=== PATIENT | female | born 1970 | race Caucasian/White ===

== ENCOUNTER → 2016-09-15 | Outpatient (CLI) | payer BC ==
[~2016-09-15] MED LIST: OXYC1TAB7 PO
[2016-09-15 15:13] LABS: BASO % 1 % (0-3); EOS % 2 % (0-3); HEMATOCRIT 35.2 % (36.0-47.0); HEMOGLOBIN 11.8 g/dL (12.0-15.5); LYMPH # 2.5 x10^3/uL (1.0-4.8); LYMPH % 43 % (24-48); MEAN CORPUSCULAR HEMOGLOBIN 27 pg (25-35); MEAN CORPUSCULAR HGB CONC 34 g/dL (31-37); MEAN CORPUSCULAR VOLUME 81 fL (79-100); MONO % 6 % (0-9); NEUT % 48 % (31-73); PLATELET COUNT 288 x10^3/uL (140-400); RED BLOOD COUNT 4.35 x10^6/uL (3.50-5.40); RED CELL DISTRIBUTION WIDTH 14.7 % (11.5-14.5); WHITE BLOOD COUNT 5.7 x10^3/uL (4.0-11.0)
[2016-09-15 15:24] LABS: CALCIUM 8.8 mg/dL (8.5-10.1); CREATININE 0.8 mg/dL (0.6-1.0); GFR 77.9
== END ==
LOC: SURGPAT 13:43
PROVIDERS: ATTEND Obstetrics & Gynecology
DX: Z01.812 Encounter for preprocedural laboratory examination (principal)
CPT/HCPCS: 36415; 80048; 85027

== ENCOUNTER 2016-09-23 06:54 | Observation (INO) | payer BC ==
[~2016-09-23] VITALS: Ht 157.5 cm; Wt 86.2 kg
[2016-09-23] VITALS (7 sets, daily range): BP systolic 95–111; BP diastolic 45–65
[~2016-09-23 06:54] MED LIST changes: +DEXAMETHASONE SOD PHOS 20 MG/5 ML VIAL. ONE; +LIDOCAINE 2% 100 MG/5 ML SYRINGE. ONE; +ONDANSETRON PF 4 MG/2 ML VIAL. ONE; -OXYC1TAB7 PO; +PROPOFOL 20 ML IV ONE; +ROCURONIUM 50 MG/5 ML VIAL. ONE; +fentaNYL PF VIAL 100 MCG/2 ML VIAL ONE
[2016-09-23] MEDS ORDERED: PROCHLORPERAZINE 10 MG/2 ML VIAL. IV PRN (07:00)
[2016-09-23] MEDS ORDERED: fentaNYL PF VIAL 100 MCG/2 ML VIAL IV PRN ×2 (07:00)
[2016-09-23] MEDS ORDERED: ONDANSETRON PF 4 MG/2 ML VIAL. IV PRN ×2 (07:00→10:15)
[2016-09-23] MEDS ORDERED: LIDOCAINE 1% 1 ML SYRINGE. ID PRN (07:00)
[2016-09-23] MEDS ORDERED: IV RINGERS,LACTATED 1000ML 1,000 ML IV SCH (07:00)
[2016-09-23] MEDS ORDERED: MORPHINE SULFATE 2 MG/ML DISP.SYRIN. IV PRN (07:00)
[2016-09-23] MEDS ORDERED: HYDROmorphone 2 MG/ML VIAL IV PRN ×2 (07:00→10:15)
[2016-09-23] MEDS ORDERED: MIDAZOLAM HCL/PF 2 MG/2 ML VIAL. ONE (07:14)
[2016-09-23] MEDS ORDERED: ESTROGENS, CONJ VAGINAL CREAM 30GM TUBE. ONE (07:19)
[2016-09-23] MEDS ORDERED: METHYLENE BLUE 1% 1 ML VIAL. ONE (07:19)
[2016-09-23] MEDS ORDERED: BUPIVACAINE-EPI 0.25%-1:200000 MPF 30 ML VIAL. ONE (07:19)
[2016-09-23] MEDS ORDERED: SCOPOLAMINE 1.5MG PATCH. TD ONE ×2 (07:25→08:30)
[2016-09-23 07:30] LABS: NEG OBC UR NEG; POS OBC UR POS
[2016-09-23] MEDS ORDERED: ePHEDrine PF IN SALINE 50 MG/5 ML DISP.SYRIN IV ONE (08:13)
[2016-09-23] MEDS ORDERED: ACETAMINOPHEN INTRAVENOUS 100 ML IV ONE ×2 (08:16→08:30)
[2016-09-23] MEDS ORDERED: NEOSTIGMINE METHYLSULFATE 5 MG/5 ML SYRINGE. ONE (09:09)
[2016-09-23] MEDS ORDERED: GLYCOPYRROLATE 1 MG/5 ML VIAL. ONE (09:09)
--- NOTE | 2016-09-23 10:02 | PDOC ---
BRIEF OPERATIVE NOTE Date: September 23, 2016 Pre-Op Diagnosis pelvic pain, uterine fibroids Post-Op Diagnosis same Procedure Performed lavh, bilateral salpingectomy, cystoscopy Surgeon Lori Radio Commentator Juan Anesthesiologist yes Anesthesia Type: General Blood Loss 350cc IV Fluid see anesthesia report Urine Output see anesthesia- some from cysto Specimens Obtained uterus, bilateral tubes Findings see dictation Complications none Additional Remarks [id number] THOMPSON MCCRAY MD September 23, 2016 10:02
--- NOTE | 2016-09-23 10:03 | DISCH ---
DISCHARGE INSTRUCTIONS Condition on Discharge Condition on Discharge: Stable Activity After Discharge Activity Instructions for Disc: Activity as tolerated, Avoid exertion, Progressive ambulation Lifting Instructions after Dis: No heavy lifting, No pulling or pushing, Do not lift >10 pounds Exercise Instruction after Dis: Progress as tolerated Driving Instructions after Dis: No driving for 2 weeks Weight Bearing Status after Di: Full weight bearing Diet after Discharge Diet after Discharge: Regular Wound Incision Care Wound/Incision Care: Ice to area for comfort, May get incision wet Contacting the DR. after DC Call your doctor for: If your condition worsens Follow-Up Follow up with: Dr. Mccray in 1 week THOMPSON MCCRAY MD September 23, 2016 10:03
[2016-09-23] MEDS ORDERED: MAG HYDROX/ALUMINUM HYD/SIMETH 30 ML ORAL.SUSP PO PRN (10:15)
[2016-09-23] MEDS ORDERED: diphenhydrAMINE HCL 25 MG CAPSULE PO PRN (10:15)
[2016-09-23] MEDS ORDERED: ZOLPIDEM 5 MG TABLET. PO PRN (10:15)
[2016-09-23] MEDS ORDERED: 0.9 % SODIUM CHLORIDE 10 ML DISP.SYRIN. IV PRN (10:15)
[2016-09-23] MEDS ORDERED: CALCIUM CARBONATE 500 MG TAB.CHEW PO PRN (10:15)
[2016-09-23] MEDS ORDERED: SIMETHICONE 80 MG TAB.CHEW PO PRN (10:15)
[2016-09-23] MEDS ORDERED: KETOROLAC TROMETHAMINE 30 MG/ML INJ. IV PRN (10:15)
[2016-09-23] MEDS ORDERED: LACTULOSE 20 GM/30 ML SOLUTION. PO PRN (10:15)
[2016-09-23] MEDS ORDERED: OXYCODONE/APAP 5/325 TABLET. PO PRN (10:15)
[2016-09-23] MEDS ORDERED: HYDROmorphone 2 MG/ML VIAL IM PRN (10:15)
[2016-09-23] MEDS ORDERED: METOCLOPRAMIDE HCL 10 MG/2 ML VIAL. IV PRN (10:15)
[2016-09-23] MEDS ORDERED: ALBUTEROL SULFATE 2.5 MG/3 ML NEBU. NEB PRN (10:15)
[2016-09-23] MEDS ORDERED: diphenhydrAMINE 50 MG/ML VIAL IV PRN (10:15)
[2016-09-23] MEDS ORDERED: IBUPROFEN 800 MG TABLET. PO PRN (10:15)
[2016-09-23] MEDS ORDERED: HYDROCODONE/APAP 5/325MG TABLET. PO PRN (10:15)
[2016-09-23] MEDS ORDERED: BISACODYL 10 MG SUPP.RECT. PR PRN (10:15)
[2016-09-23] MEDS ORDERED: NALOXONE 0.4 MG/ML VIAL. IV PRN (10:15)
--- NOTE | 2016-09-23 11:29 | OP ---
DATE OF SURGERY: PREOPERATIVE DIAGNOSES: This is a 46-year-old female who presented with pelvic pain and uterine fibroids that were seen on ultrasound. POSTOPERATIVE DIAGNOSES: This is a 46-year-old female who presented with pelvic pain and uterine fibroids that were seen on ultrasound. PROCEDURE: LAVH, bilateral salpingectomy and cystoscopy. SURGEONS: Dr. Mccray and Dr. Martinez. ANESTHESIA: General. COMPLICATIONS: None. ESTIMATED BLOOD LOSS: 350 mL. IV FLUIDS: Please see the anesthesia report. URINE OUTPUT: See the anesthesia report. However, some of the urine output was from cystoscopy at the end. SPECIMENS: Uterus and bilateral tubes. DESCRIPTION OF PROCEDURE: After informed consent was obtained, the patient was taken to the operating room and given a smooth induction of anesthesia without complications. Her abdomen, perineum, and vagina were prepped and draped in the usual sterile fashion. Her legs have been placed in Arnol stirrups and a Lima catheter had been previously placed. The patient received 2 grams of Ancef prior to the beginning of the procedure. The speculum was placed and the cervix was grasped with a single tooth tenaculum. The cervix was injected at 2, 4, 8 and 10 o'clock on the cervix using a total of 10 mL of 0.25% Marcaine with epinephrine. The Valtchev was placed through the cervical os and attached to the tenaculum. The speculum was then removed. I changed gloves and went back above. A 5 mm incision was made just above the umbilicus. The bladeless trocar was placed through this incision using direct visualization. The camera confirmed good trocar placement. There was a small band of adhesions between the omentum and the anterior abdominal wall. This was not involving the trocar placement. We placed two lateral ports under direct visualization after transillumination of the abdominal wall. These ports were placed without difficulty. We then used the LigaSure to cauterize this tiny omental band to get it out of our way. The uterus was noted to be enlarged with a very large left-sided cervical fibroid. It was just as large or maybe a tiny bit larger than the actual uterus itself. Both ovaries were noted to be normal bilaterally and the patient had expressed the wish that we leave her ovaries if they looked normal. We used the LigaSure to cauterize across the round ligaments bilaterally. Both of these ligaments were transected and then a bladder flap was created using a combination of sharp and blunt dissection anteriorly. We then elevated the tubes off of the ovaries and cauterized across the mesosalpinx of the tube to separate the tubes from the ovaries bilaterally. We then cauterized across the uteroovarian ligament to leave the ovaries behind. We then cauterized the branches of the uterine artery down the sides of the uterus. This was straight forward on the right side and we were also able to visualize the ureter on the right side. On the left side, we were not able to visualize the ureter and due to the large cervical fibroid we had to be very careful in our dissection. We actually were able to peel the capsule away from the cervical fibroid and used a laparoscopic tenaculum to pull it up out of the way and then get the blood supply from below. Because of the cervical fibroid the procedure was a little bit bloodier than a normal LAVH. Once we secured the blood supply, she had no further bleeding. We then stopped the above procedure and went below to complete the surgery. A weighted speculum was placed in the vagina and the Valtchev and the tenaculum were replaced by 2 Juan José thyroid clamps. A circumferential incision was made with a knife around the cervix. The bladder was retracted superiorly using blunt dissection with a Ray-Melida. We then entered the posterior peritoneum using sharp dissection and tagged the posterior peritoneum to the posterior vaginal wall. This was tagged and saved for later use. We then placed a Betsy speculum intraperitoneally. We then proceeded to clamp, cut and ligate the pedicles, the uterosacral cardinal complex, using 2 Misti transfixion sutures. These were tagged to the lateral vaginal sidewalls and saved for later use. We then continued to cauterize what was left of the cardinal ligament and the uterine vessels to free the uterus from the attachment. We directly on the cervix and lower uterus to do this and we used the LigaSure for most of this. Once the uterus was free, we did have to bivalve the uterus to take it out. The fibroid was, again almost as large or maybe a little bit larger than the uterus itself. This was all passed off. We then evacuated some clots from the pelvis where the uterus had done some backbleeding. We then closed the peritoneum using a running pursestring suture of 2-0 Vicryl and closed the vaginal cuff with a running locking stitch of 2-0 Vicryl. We then called for cystoscopy because I wanted to check the integrity of both ureters given the large cervical fibroid on the left side, especially. Anesthesia gave some methylene blue and we went back above to irrigate the pelvis while the methylene blue was working its way through her system. We irrigated the pelvis. Several large clots were evacuated, but no active bleeding was noted. We then sprayed Tisseel on the raw surfaces in the pelvis and again, no bleeding was noted. We removed the ports under direct visualization and allowed the gas to escape. No bleeding was noted from the ports. We then closed the port sites with interrupted suture of 4-0 nylon and infiltrated the sites with anesthetic for patient comfort. I then went down below again to look in the bladder. I was able to easily see both ureters and the integrity of the bladder was intact. At this point, the procedure was terminated. The Lima was left out. There was no bleeding from the vagina. The patient tolerated the procedure well. There were no complications. THOMPSON MCCRAY MD DR: MINDA/bria JOB#: [id number] / [id number]
[2016-09-23] MEDS ORDERED: SEVOFLURANE 61 TO 120 MINUTES. IH ONE (11:45)
[2016-09-24 00:37] VITALS: BP 95/50
[2016-09-24 06:32] VITALS: BP 87/50
--- NOTE | 2016-09-24 08:39 | PDOC ---
SURGICAL PROGRESS NOTE Subjective doing well. No complaints. Eating and tolerating pain meds Vital Signs Vital Signs Date Time Temp Pulse Resp B/P (MAP) Pulse Ox O2 Delivery O2 Flow Rate FiO2 09/24/16 06:32 98.4 71 18 87/50 (62) 96 98.4 09/24/16 00:37 Room Air 09/23/16 09:55 10 I&O Intake and Output 09/24/16 07:00 Intake Total 1550 ml Output Total 1650 ml Balance -100 ml Intake IV Total 1550 ml Output Urine Total 1650 ml PATIENT HAS A WHITT: No General: Alert HEENT: Mucous membr. moist/pink Abdomen: Normal bowel sounds, Soft, No tenderness, No hepatosplenomegaly, No masses Extremities: No clubbing, No cyanosis, No edema, Normal pulses, No tenderness/ swelling Labs Laboratory Tests Test 09/23/16 07:10 09/23/16 14:55 Urine Test Negative (NEG) Hematocrit 31.2 % (36.0-47.0) Laboratory Tests Test 09/23/16 14:55 Hematocrit 31.2 % (36.0-47.0) I have reviewed the following labs, vitals Problem List Pt pod#1 s/p lavh and cysto. Plan for discharge today. Problems: THOMPSON MCCRAY MD September 24, 2016 08:39
--- NOTE | 2016-09-24 08:43 | PDOC3 ---
Discharge Summary Visit Information Date of Admission: September 23, 2016 Date of Discharge: September 24, 2016 Admitting Diagnosis: fibroids, pelvic pain Final Diagnosis same Brief Hospital Course Allergies Allergies Coded Allergies Type Severity Reaction Last Updated Verified No Known Drug Allergies 09/23/16 No Vital Signs Vital Signs Date Time Temp Pulse Resp B/P (MAP) Pulse Ox O2 Delivery O2 Flow Rate FiO2 09/24/16 06:32 98.4 71 18 87/50 (62) 96 98.4 09/24/16 00:37 Room Air 09/23/16 09:55 10 Lab Results Laboratory Tests Test 09/23/16 07:10 09/23/16 14:55 Urine Test Negative (NEG) Hematocrit 31.2 % (36.0-47.0) Laboratory Tests Test 09/23/16 14:55 Hematocrit 31.2 % (36.0-47.0) Brief Hospital Course Ms. Ramirez is a 46 old F who presented with a history of pelvic pain and a fibroid seen on ultrasound. Pt presented yesterday for LAV. She underwent the planned procedure without difficulty. We did a cystoscopy also, since the uterus was so close to the ureter and we were unable to see the ureter l/s on the L side. Pt has done well post op. hct is 31. She is ambulating and eating. She is taking her oral meds. Incisions are clean and dry. She wants to go home Plan is for discharge. Discharge Information Condition at Discharge: Improved Follow Up: Weeks (1) Disposition/Orders: D/C to Home Miscellaneous Medications Info (No Known Medications Prior To Admisstion), 1 EACH , (Reported) THOMPSON MCCRAY MD September 24, 2016 08:43
[2016-09-24] MEDS ORDERED: OXYC1TAB7 PO (08:48)
--- NOTE | 2016-09-27 13:30 | PATHOLOGY ---
PATHOLOGY REPORT * * * * * * * * FINAL DIAGNOSIS: Uterus and bilateral fallopian tubes, laparoscopic-assisted vaginal hysterectomy with bilateral salpingectomy: - Leiomyomas, uterine corpus, the largest measuring 7.5 cm in greatest dimension (uterine weight 303 grams). - Mild chronic cervicitis with focal squamous metaplasia. - Nabothian cyst, cervix. - Proliferative endometrium. - Adenomyosis, uterine corpus, subbasal, focal. - Serosal adhesions. - Left paratubal cyst. COMMENT: There is no evidence of malignancy. (JPM:[email or web address]; d/t: 09/27/16) REPORT ELECTRONICALLY SIGNED BY: Mahesh Carrero M.D. DATE/TIME: 09/27/2016 13:20 * * * * * * * * GROSS PATHOLOGY: The specimen is received in formalin labeled "Ayde James, uterus, cervix, bilateral tubes". Received is a 303 g, 10.2 x 6.6 x 5.1 cm partially macerated uterus with attached cervix and attached mass measuring 7.5 x 6.6 x 5.5 cm, as well as attached fallopian tubes, weighing 4 and 5 g, left and right, respectively. The uterine serosa is pale carreno in appearance with a large amount of overlying adhesions. The 0.9 cm cervical os is surrounded by pale carreno, smooth ectocervical mucosa. The uterus is oriented using the peritoneal reflection and the anterior paracervical margin is inked black. The specimen is further opened laterally to reveal a pale carreno endocervical canal measuring 3.3 cm in length. The endometrial cavity is predominantly triangular measuring 4.7 cm in length by 2.5 cm in width. The endometrium is pink-carreno, glistening to red-brown and granular in appearance measuring 0.1 cm in thickness. Serial sectioning reveals a carreno-pink, trabeculated myometrium measuring up to 2.5 cm in thickness displaying several intramural fibroids ranging in size from 0.5 to 0.8 cm. Sectioning through the attached mass displays necrotic-appearing cut surfaces, suggestive of a fibroid showing degeneration. The left fimbriated fallopian tube measures 7.8 cm in length by 0.7 cm in diameter. The serosal surface is inked black. There is a single paratubal cyst measuring 0.6 cm filled with clear fluid. Sectioning reveals a patent lumen. The right fimbriated fallopian tube measures 7.1 cm in length by up to 0.6 cm in diameter. Sectioning reveals a pinpoint to patent lumen and the fallopian tube appears grossly unremarkable. The specimen is submitted representatively as follows: A1 12:00 cervix A2 6:00 cervix A3 anterior endomyometrium A4 posterior endomyometrium A5 small business sales representative sections of intramural fibroids and attached mass A6 small business sales representative sections of left and right fallopian tubes. ([facility]; 09/24/2016) INITIAL CPT CODE(S): A; 26372 Professional services performed [place] [address] Technical services performed by [facility] at [address] [place] [address], [address], [place] [address]. SPECIMEN(S) RECEIVED: A.Uterus, cervix, bilateral tubes CLINICAL HISTORY: None provided PATIENT: AYDE IGLESIAS /AGE: 902/06/1970 (Age: 46) PATIENT #: [id number] ALT CASE #: SPECIMEN COLLECTION DATE: 09/23/2016 SPECIMEN RECEIVED DATE: 09/23/2016 [facility] - [address] [place] [address] - PHONE: [phone] * * * END OF REPORT * * *
== END 2016-09-24 10:21 | disposition home or self-care (01) ==
LOC: SURG 06:54 → 3 NORTH 10:00
PROVIDERS: ADMIT Obstetrics & Gynecology; ATTEND Obstetrics & Gynecology
DX: R10.2 Pelvic and perineal pain (principal); D25.9 Leiomyoma of uterus, unspecified; K66.0 Peritoneal adhesions (postprocedural) (postinfection)
CPT/HCPCS: 36415; 58554; 81025; 85014; 86850; 86900; 86901; 96374; C1769; G0378; G0379; J0131; J0690; J1100; J1885; J2250; J2405; J2704; J2710; J3010; J3490; J7030; J7120; Q9968; 88307